=== PATIENT | female | born 1940 | race American Indian/Alaskan Native ===

== ENCOUNTER 2024-03-05 09:38 | Emergency (ER) | payer MEDICARE, BC ==
[~2024-03-05] VITALS: Ht 149.9 cm; Wt 46.4 kg
[2024-03-05] MEDS ORDERED: ACETAMINOPHEN PO (10:06)
[2024-03-05] MEDS ORDERED: DOXEPIN HCL3 MG PO (10:07)
[2024-03-05 12:45] VITALS: BP 126/57
[2024-03-05] MEDS ORDERED: HYDROCODON-ACE1 EA10 PO (19:17)
== END 2024-03-05 13:20 | disposition home or self-care (01) ==
LOC: ED 09:38
DX: S52.502A Unspecified fracture of the lower end of left radius, initial encounter for closed fracture (principal); F03.90 Unspecified dementia, unspecified severity, without behavioral disturbance, psychotic disturbance, mood disturbance, and anxiety; W18.30XA Fall on same level, unspecified, initial encounter; S32.592A Other specified fracture of left pubis, initial encounter for closed fracture
CPT/HCPCS: 72170; 73110; 73552; 73590; 99283; A9270

== ENCOUNTER 2024-03-05 15:27 | Emergency (ER) | payer MEDICARE, BC ==
[~2024-03-05] VITALS: Ht 149.9 cm; Wt 46.0 kg
[~2024-03-05 15:27] MED LIST: ACETAMINOPHEN PO; DOXEPIN HCL3 MG PO
--- OUTSIDE RECORDS SUMMARY | 2024-03-05 15:33 | XMS ---
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 Lindsay has no Care Guidelines for this patient. Ana VIS[facility] COUNT (12 MO.) [facility] NOTE: Visits indicate total known visits. ED/C VISIT TRACKING (12 MO.) [facility] COMPLAINT: - LEG PAIN 03/05/2024 09:39 [facility] [place] TYPE: Emergency COMPLAINT: - WRIST INJURY INPATIENT VISIT TRACKING (12 MO.) No inpatient visits to display in this time frame [id number]
[2024-03-05] MEDS ORDERED: HYDROCODONE/ACETA 5/325 TAB PO ONE (19:15)
[2024-03-05] MEDS ORDERED: HYDROCODON-ACE1 EA10 PO (19:17)
[2024-03-05] MEDS ORDERED: HYDROCODONE BIT/ACETAMINOPHEN 5/325 MG 1 TAB HOME.PACK PO ONE (20:00)
[2024-03-05 20:10] VITALS: BP 139/57
== END 2024-03-05 20:11 | disposition home or self-care (01) ==
LOC: ED 15:27
DX: S32.592A Other specified fracture of left pubis, initial encounter for closed fracture (principal); W19.XXXA Unspecified fall, initial encounter
CPT/HCPCS: 72170; 73552; 73590; 99283; A9270